=== PATIENT | male | born 1965 | race Hispanic/Latino ===

== ENCOUNTER 2022-07-11 18:15 | Emergency (ER) | payer OTHER ==
[2022-07-11] MEDS ORDERED: ACETAMINOPHEN 500 MG TABLET PO ONE (18:30)
[2022-07-11] MEDS ORDERED: IBUPROFEN 800 MG TAB PO ONE (18:30)
[2022-07-11] MEDS ORDERED: 0.9%NACL 1000ML 1,000 ML IV SCH (18:30)
[2022-07-11 18:32] LABS: BASOPHILS % (AUTO) 0.2 % (0.0-5.0); EOSINOPHILS % (AUTO) 0.1 % (0.0-8.0); HEMATOCRIT 46.7 % (42-54); LYMPHOCYTES % (AUTO) 11.9 % (21.0-51.0); MEAN CORPUSCULAR HEMOGLOBIN 31.9 pg (27.0-33.0); MEAN CORPUSCULAR HGB CONC 33.8 g/dL (32.0-36.0); MEAN CORPUSCULAR VOLUME 94.2 fL (79-99); NEUTROPHILS % (AUTO) 79.3 % (40.0-77.0); PLATELET COUNT (AUTO) 306 K/uL (130-400); RED BLOOD CELL COUNT(AUTO) 4.96 MIL/uL (4.50-6.20); RED CELL DISTRIBUTION WIDTH 13.3 % (11.0-15.5); WHITE BLOOD COUNT (AUTO) 17.7 K/uL (4.8-10.8)
[2022-07-11] MEDS ORDERED: ACETAMINOPHEN 500 MG TABLET ONE (18:33)
[2022-07-11] MEDS ORDERED: IBUPROFEN 800 MG TAB ONE (18:34)
[2022-07-11 18:35] LABS: APPEARANCE,URINE CLOUDY (CLEAR); BILIRUBIN,URINE SMALL (NEGATIVE); COLOR,URINE YELLOW (YELLOW); GLUCOSE, URINE (UA) NEGATIVE (NEGATIVE); KETONES,URINE 5 mg/dL (NEGATIVE); LEUKOCYTE ESTERASE ,URINE NEGATIVE (NEGATIVE); NITRATE,URINE NEGATIVE (NEGATIVE); OCCULT BLOOD,URINE NEGATIVE (NEGATIVE); PH,URINE 5.5 (5.0-8.0); PROTEIN,URINE 100 mg/dL (NEGATIVE); UROBILINOGEN,URINE 0.2 mg/dL (0.2-1.0)
[2022-07-11 18:43] LABS: CREATININE 2.4 mg/dL (0.5-1.5)
[2022-07-11 18:46] LABS: BACTERIA,URINE Few /HPF (None Seen); RBC,URINE 0-1 /HPF (0-1)
[2022-07-11 18:47] LABS: SQUAMOUS EPITHELIAL CELL,UR Rare /HPF (0-2)
[2022-07-11 18:48] LABS: HYALINE CASTS, URINE 26-50 /LPF (0-1 /LPF); URIC ACID CRYSTALS,URINE Few /LPF (None Seen)
[2022-07-11 18:49] LABS: ALBUMIN 5.5 g/dL (3.5-5.0); MUCUS,URINE Few LPF (None Seen); TOTAL PROTEIN, SERUM 10.2 g/dL (6.0-8.3)
[2022-07-11] MEDS ORDERED: ASPIRIN 325MG TAB PO ONE (19:30)
[2022-07-11] MEDS ORDERED: NITROGLYCERIN 1GM OINT 1 INCH/1GM TD ONE (19:30)
[2022-07-11] MEDS ORDERED: CEFTRIAXONE 1G VIAL IVP ONE (19:30)
[2022-07-11] MEDS ORDERED: LACTATED RINGERS 1000ML 1,000 ML IV SCH (20:00)
[2022-07-11 20:38] VITALS: BP 149/81
[2022-07-11] MEDS ORDERED: CEPH500B PO (20:55)
== END 2022-07-11 21:14 | disposition home or self-care (01) ==
LOC: EDH 18:15
DX: T67.5XXA Heat exhaustion, unspecified, initial encounter (principal); E86.0 Dehydration; I95.1 Orthostatic hypotension; N28.9 Disorder of kidney and ureter, unspecified; N39.0 Urinary tract infection, site not specified; Z79.1 Long term (current) use of non-steroidal anti-inflammatories (NSAID); X58.XXXA Exposure to other specified factors, initial encounter; Y93.89 Activity, other specified; Y92.89 Other specified places as the place of occurrence of the external cause; Y99.8 Other external cause status
CPT/HCPCS: 99284; 96374; 96361; 82550; 84484 ×2; 80053; 85025; 81001; 36415; 93005; J0696

== ENCOUNTER 2025-10-06 19:24 | Emergency (ER) | payer SELFPAY ==
[~2025-10-06] VITALS: Ht 167.6 cm; Wt 63.2 kg
[~2025-10-06 19:24] MED LIST: CEPH500B PO
[2025-10-06] MEDS: CLINDAMYCIN IVPB 600MG/50ML 50 ML IV SCH (20:30)
[2025-10-06 20:36] LABS: IMMATURE GRANULOCYTE ABSOLUTE 0.01 K/uL (0-1); NUCLEATED RED BLOOD CELLS 0.0 % (0.0-0.19); PLATELET COUNT (AUTO) 252 K/uL (130-400); RED BLOOD CELL COUNT(AUTO) 4.04 MIL/uL (4.50-6.20); RED CELL DISTRIBUTION WIDTH 13.7 % (11.0-15.5); WHITE BLOOD COUNT (AUTO) 7.1 K/uL (4.8-10.8)
[2025-10-06 20:43] LABS: CREATININE 0.7 mg/dL (0.5-1.3); GLOMERULAR FILTR. RATE CALC 104.0 mL/min (>90); GLUCOSE,RANDOM 105.0 mg/dL (70-105); SODIUM SERUM 142.0 mmol/L (136-145); UREA NITROGEN, BLOOD 23.0 mg/dL (7-18)
--- NOTE | 2025-10-06 21:02 | ERN ---
ED Note History of Present Illness Stated Complaint: INSECT BITE Chief Complaint: Insect Bite Time Seen by MD: 19:58 Time Seen by Midlevel: 20:00 Dictation: 60-year-old male coming in for evaluation after an insect bite that happened one week ago. Patient states he does not know what bit him but has pain swelling and redness to the left posterior thigh. Denies having any fever, nausea or vomiting. Allergies: Coded Allergies: No Known Allergies (Unverified Allergy, Unknown, 07/11/22) Home Meds Active Scripts Cephalexin Monohydrate (Keflex) 500 Mg Cap, 500 MG PO TID for 7 Days, #21 CAP Prov:MELODIE HERNANDEZ 07/11/22 Past Medical History Past Medical History: No Pertinent History Additional Past Medical Hx: Obesity Surgical History: Cholecystectomy Family History: Negative Social History: Lives with family Review of System Dictation Constitutional: Negative for fever,chills, and weight loss Eyes: Negative for injury, pain,redness, and discharge ENT: Negative for injury,pain or swelling Cardiovascular: Negative for chest pain, palpitations, and edema Respiratory: Negative for shortness of breath, cough, and wheezing, Abdomen/GI: Negative for abdominal pain, nausea, vomiting, diarrhea, and constipation Back: Negative for injury and pain : Negative for injury, bleeding and discharge MS/Extremity: Negative for injury and deformity Skin: Negative for rash, and discoloration, complaining of insect bite Neuro: Negative for headache, weakness, numbness, tingling, and seizure Psych: Negative for suicide ideation, homicidal ideation, and hallucinations Review of Systems: was completed Initial Vital Sign VS Vital Signs Date Time Temp Pulse Resp B/P (MAP) Pulse Ox O2 Delivery O2 Flow Rate FiO2 10/06/25 19:57 97.2 67 20 134/66 97 Room Air Physical Exam Dictation General: awake, alert, NAD Head/Face: Normocephalic, atraumatic Eyes: PERRL, EOMI, vision at baseline ENT: oral cavity clear, TMs clear, no signs of infection Neck: Trachea midline, supple, no nuchal rigidity Cardiovascular: RRR, normal S1/S2, No MRGs, no JVD Respiratory: CTAB, no respiratory distress, No rales or wheezes Abdomen: Soft, non-tender, non-distended, normal bowel sounds, no guarding or rebound. Skin: Warm, dry, normal turgor, no rash,small indurated area behind the posterior left thigh with minimal fluctuance, no streaking MS/Extremity: Pulses equal, no cyanosis, neurovascular intact, FROM, Neuro: COAx4, GCS 15, strength 5/5, CN 2-12 intact, normal cerebellar exam, normal gait, Psych: Normal behavior, mood, and affect normal Results (Laboratory/Radiology) Laboratory/Radiology Laboratory Tests Test 10/06/25 20:20 White Blood Count 7.1 K/uL (4.8-10.8) Red Blood Count 4.04 MIL/uL (4.50-6.20) L Hemoglobin 13.0 g/dL (14.0-18.0) L Hematocrit 38.0 % (42-54) L Mean Corpuscular Volume 94.1 fL (79-99) Mean Corpuscular Hemoglobin 32.2 pg (27.0-33.0) Mean Corpuscular Hemoglobin Concent 34.2 g/dL (32.0-36.0) Red Cell Distribution Width 13.7 % (11.0-15.5) Platelet Count 252 K/uL (130-400) Mean Platelet Volume 8.6 fL (7.5-10.5) Immature Granulocyte % (Auto) 0.1 % (0-1) Neutrophils (%) (Auto) 50.8 % (40.0-77.0) Lymphocytes (%) (Auto) 36.3 % (21.0-51.0) Monocytes (%) (Auto) 8.3 % (3.0-13.0) Eosinophils (%) (Auto) 4.1 % (0.0-8.0) Basophils (%) (Auto) 0.4 % (0.0-5.0) Neutrophils # (Auto) 3.6 K/uL (1.8-7.7) Lymphocytes # (Auto) 2.6 K/uL (1.0-4.8) Monocytes # (Auto) 0.6 K/uL (0.1-1.0) Eosinophils # (Auto) 0.29 K/uL (0.00-0.70) Basophils # (Auto) 0.03 K/uL (0.00-0.20) Absolute Immature Granulocyte (auto 0.01 K/uL (0-1) Nucleated Red Blood Cells 0.0 % (0.0-0.19) Sodium Level 142 mmol/L (136-145) Potassium Level 3.7 mmol/L (3.5-5.1) Chloride Level 105 mmol/L (101-111) Carbon Dioxide Level 29 mmol/L (21-32) Blood Urea Nitrogen 23 mg/dL (7-18) H Creatinine 0.7 mg/dL (0.5-1.3) Glomerular Filtration Rate Calc 104 mL/min (>90) Random Glucose 105 mg/dL (70-105) Total Calcium 8.8 mg/dL (8.5-10.1) Labs Reviewed?: Yes ED Course ED Course Orders Procedure Category Date Status Time Cbc With Differential LAB 10/06/25 Complete 20:20 Basic Metabolic Panel LAB 10/06/25 Complete 20:20 Clindamycin Ivpb PHA 10/06/25 In Process 600mg/50ml (Cleocin 20:30 Current Medications Medications (Trade) Dose Ordered Sig/[place] Route PRN Reason Start Time Stop Time Status Last Admin Dose Admin Clindamycin HCl/ Dextrose 50 ml @ 100 mls/hr ONCE IV 10/06/25 20:30 10/16/25 23:30 Vital Signs Date Time Temp Pulse Resp B/P (MAP) Pulse Ox O2 Delivery O2 Flow Rate FiO2 10/06/25 19:57 97.2 67 20 134/66 97 Room Air Medical Decision Making MDM MDM: 60-year-old male coming in for evaluation after an insect bite that happened one week ago. Patient states he does not know what bit him but has pain swelling and redness to the left posterior thigh. Denies having any fever, nausea or vomiting.. On physical examination the patient has an area of erythema and induration to the posterior aspect of the left thigh consistent with cellulitis. We obtained basic blood work. CBC shows no leukocytosis. Chemistries are unremarkable. We will give loading dose of clindamycin in the emergency department and will discharged home with oral clindamycin. Strict return precautions discussed Differential diagnosis: There are no social concerns with this patient. Prescription drug management Prescriptions will include: Clindamycin Medical management and examination interpretation discussions were had by me with other qualified healthcare professionals as indicated for the patient's care. DX & DISP Disposition: Discharge Departure Impression: Primary Impression: Insect bite of left leg Condition: Stable Scripts Clindamycin HCl (Clindamycin HCl) 300 Mg Capsule 1 CAP PO BID for 7 Days, #14 CAP 0 Refills Prov: GABRIEL CHAUDHARI 10/06/25 Additional Instructions: Your blood work today is stable. Your white blood cell count is normal which rules out a systemic infection. You were given IV antibiotics in the emergency department. I have given you a prescription for oral antibiotics for outpatient management. If you develop fever, chills, or worsening redness to the area please report to the ER for further evaluation. Referrals: SELF,REFERRAL (PCP) Time of Disposition: 21:05 I have reviewed the case, and I agree with, Diagnosis and Plan I performed the substantive portion of the visit. I have reviewed and personally made and approve the management plan that is documented in the note by myself or the GENEVIEVE. I acknowledge for responsibility for the patient's management plan. IZZY DAVENPORT SURGERY MANAGER Oct 06, 2025 21:01 GABRIEL CHAUDHARI PAC Oct 06, 2025 21:06
[2025-10-06] MEDS ORDERED: CLIN-141 PO (21:03)
[2025-10-07 01:40] VITALS: BP 123/61; PULSE 78; RESP 18; TEMP 97.5; O2SAT 98
== END 2025-10-07 02:03 | disposition home or self-care (01) ==
LOC: EDH 19:24
DX: S70.362A Insect bite (nonvenomous), left thigh, initial encounter (principal); E66.9 Obesity, unspecified; Z90.49 Acquired absence of other specified parts of digestive tract; Z68.22 Body mass index [BMI] 22.0-22.9, adult; W57.XXXA Bitten or stung by nonvenomous insect and other nonvenomous arthropods, initial encounter; Y93.89 Activity, other specified; Y92.89 Other specified places as the place of occurrence of the external cause; Y99.8 Other external cause status
CPT/HCPCS: 99284; 96365; 96366; 80048; 85025; 36415; J3490; 99283